=== PATIENT | female | born 1990 | race American Indian/Alaskan Native ===

== ENCOUNTER 2017-02-03 09:31 | Emergency (ER) | payer MEDICAID ==
[~2017-02-03] VITALS: Ht 157.5 cm; Wt 108.0 kg
[~2017-02-03 09:31] MED LIST: IBUP200T48 PO
[2017-02-03 09:33] VITALS: BP 116/75
== END 2017-02-03 10:22 | disposition home or self-care (01) ==
LOC: ED 10:17
DX: K11.5 Sialolithiasis (principal); K11.21 Acute sialoadenitis
CPT/HCPCS: 99283

== ENCOUNTER 2017-02-04 20:44 | Emergency (ER) | payer MEDICAID ==
[~2017-02-04] VITALS: Ht 157.5 cm; Wt 110.0 kg
[2017-02-04 20:45] VITALS: BP 149/87
== END 2017-02-04 22:12 | disposition left against medical advice (07) ==
LOC: ED 22:06
DX: R22.9 Localized swelling, mass and lump, unspecified (principal); R11.2 Nausea with vomiting, unspecified; Z53.21 Procedure and treatment not carried out due to patient leaving prior to being seen by health care provider